=== PATIENT | female | born 1990 | race Caucasian/White ===

== ENCOUNTER 2021-07-24 13:44 | Emergency (ER) | payer OTHER ==
[~2021-07-24] VITALS: Ht 175.3 cm; Wt 104.0 kg
[2021-07-24] MEDS ORDERED: BACTROBAN TOP ×2 (14:39)
[2021-07-24] MEDS ORDERED: KEFLEX500 MG PO ×2 (14:39)
[2021-07-24 15:00] VITALS: BP 140/82
== END 2021-07-24 15:00 | disposition home or self-care (01) | DRG 605 ==
LOC: ED 13:44
PROC: 0HQKXZZ Repair Right Lower Leg Skin, External Approach (ICD-10-PCS; principal; 2021-07-24)
DX: S81.811A Laceration without foreign body, right lower leg, initial encounter (principal); V86.55XA Driver of 3- or 4- wheeled all-terrain vehicle (ATV) injured in nontraffic accident, initial encounter; Y93.I9 Activity, other involving external motion; Y92.833 Campsite as the place of occurrence of the external cause